=== PATIENT | male | born 1950 | race Caucasian/White ===

== ENCOUNTER 2020-07-14 06:32 | Emergency (ER) | payer MEDICARE, SELFPAY ==
[2020-07-14 06:35] VITALS: BP 153/86; PULSE 66; RESP 16; TEMP 36.9; O2SAT 99
[2020-07-14 07:08] VITALS: RESP 20
[2020-07-14] MEDS: KETOROLAC 30 MG/ML VIAL (*BKC) IV PUSH (07:25)
[2020-07-14] MEDS: ONDANSETRON INJ 4 MG/2 ML VIAL IV PUSH (07:26)
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
[2020-07-14 07:34] VITALS: BP 175/87; PULSE 67; RESP 20; O2SAT 96
[2020-07-14 08:50] VITALS: BP 151/83; PULSE 70; RESP 20; O2SAT 98
== END 2020-07-14 08:56 | disposition home or self-care (01) ==
PROVIDERS: Emergency Provider General Practice; PCP Internal Medicine
DX: M54.5 Low back pain (principal); I10 Essential (primary) hypertension
CPT/HCPCS: 96374; 96375; 99284; J1170; J1885; J2405

== ENCOUNTER 2020-07-14 16:34 | Emergency (ER) | payer MEDICARE, SELFPAY ==
--- NOTE | ~2020-07-14 | CT_ITS ---
EXAMINATION: CT lumbar spine wo con DATE: 07/14/2020 17:46 INDICATION: Left leg pain, low back pain TECHNIQUE: Computed tomography (CT) of the head was performed without intravenous contrast. The mA wa s adjusted according to patient size. Iterative reconstruction technique was employed. Exam dose: 40 5.86 mGy-cm total exam DLP. COMPARISON: None FINDINGS: There is moderately prominent degenerative disc disease and 3.4 mm retrolisthesis at L2-3, the posterior disc bulging. There is moderately severe degenerative disc disease, posterior spurring and 4 mm retrolisthesis at L 4-5. There is moderate degenerative disc disease and posterior spurring at L5-S1. No fracture or bone destruction is evident. No spondylolysis. Incidental finding of diverticulosis of the sigmoid colon IMPRESSION: Multilevel degenerative disc disease with retrolisthesis at L2-3 and L4-5 Reviewed, dictated and finalized at [facility]. Reviewed, dictated and finalized at [facility]. IMPRESSION: Multilevel degenerative disc disease with retrolisthesis at L2-3 a nd L4-5
[2020-07-14 16:41] VITALS: BP 176/83; PULSE 78; RESP 17; TEMP 36.9; O2SAT 97
--- NOTE | 2020-07-14 16:52 | ED.BACK ---
HPI - Back Pain/Injury General Chief Complaint: Back Pain/Injury Stated Complaint: L leg pain/ seen this am. Time Seen by Provider: 07/14/20 16:45 Source: patient Mode of arrival: ambulatory Limitations: no limitations History of Present Illness HPI Narrative: This patient is a 70 year old male with history chronic back issues who presents for evaluation of left lower back pain. Patient was evaluated this morning for this pain. After receiving pain medication, his pain resolved so he was discharged home. Patient states the pain medication resolved after a few hours so patient has returned. His pain is otherwise unchanged. He has no urinary issues. He has been able to ambulated. He ambulated into the ER. He has not fever, chills, nausea or vomiting. He also denies any abdominal pain. Associated symptoms: difficulty walking (due to pain) Related Data Allergies Allergy/AdvReac Type Severity Reaction Status Date / Time No Known Allergies Allergy Verified 07/14/20 17:00 Review of Systems Review of Systems: All systems reviewed & are unremarkable except as noted in HPI and below Constitutional: Constitutional: Denies chills and Denies fever(s) Respiratory: Respiratory: Denies dyspnea Gastrointestinal: Gastrointestinal: Denies abdominal pain, Denies diarrhea, Denies nausea and Denies vomiting Genitourinary: Genitourinary: Denies hematuria, Denies oliguria, Denies dysuria and Denies urinary frequency Musculoskeletal: Musculoskeletal: Reports back pain Neurologic: Denies dizziness, Denies focal weakness, Denies numbness and Denies weakness PMFSH Past Medical History Medical History (Updated 07/14/20 @ 19:13 by Laura Toribio MD) Hypertension Surgical History Surgical History (Updated 07/14/20 @ 07:28 by Laura Toribio MD) Previous back surgery Social History Social History Smoking status: Never smoker Alcohol intake: current Gender identity (if verbalized by the patient): Male Exam Const: General: no acute distress and alert Orientation/consciousness: patient oriented x3 HENMT: Head: normocephalic and atraumatic Face and sinus: face symmetric Eyes: Pupils: Equal, round and reactive pupils present EOM: EOMs intact bilaterally Chest: Chest palpation & inspection: normal inspection of the chest Resp: Effort & Inspection: normal respiratory effort and no retractions Auscultation: clear to auscultation bilaterally Cardio: Rate: regular rate Rhythm: regular rhythm Heart sounds: no murmurs GI: GI Palp: Yes Soft to palpation, No Tenderness to palpation present (GI), No Guarding due to palpation present (GI), No Rigid due to palpation and No No hepatosplenomegaly present Back/Spine/Pelvis: Thoracic/Lumbar Spine: straight leg raise negative bilaterally and paraspinal muscle tenderness on the left (lumbar, low) Skin: General skin exam: normal color Rashes: no rashes Neuro: General: patient oriented x3 and moves all extremities Extrem: General: normal to inspection and no pedal edema Other: strong palpable pedal pulses Course Reevaluation(s) Reevaluation #1: I discussed with patient labs were unremarkable. CT shows DJD no acute findings. Patient is able to ambulate and sit. Patient has no acute findings to suggest needed for emergent intervention. Date: 07/14/20 Time: 19:12 Vital Signs Vital signs: Vital Signs Temperature 98.4 F 07/14/20 16:41 Pulse Rate 78 07/14/20 16:41 Respiratory Rate 17 07/14/20 16:41 Blood Pressure 176/83 H 07/14/20 16:41 Pulse Oximetry 97 07/14/20 16:41 Temperature 98.4 F 07/14/20 16:41 Pulse Rate 78 07/14/20 16:41 Respiratory Rate 17 07/14/20 16:41 Blood Pressure 176/83 H 07/14/20 16:41 Pulse Oximetry 97 07/14/20 16:41 MDM - Back Pain/Injury Lab Data Attestation: I reviewed the patient's lab results. Result diagrams: 07/14/20 17:14 07/14/20 17:14 Labs: Lab Results 06/30
[2020-07-14] MEDS: ONDANSETRON INJ 4 MG/2 ML VIAL IV PUSH (17:06)
[2020-07-14 17:21] LABS: Basophils Absolute Auto 0.1 K/mm3 (0.0-0.1); Basophils Percent Auto 0.5 % (0.2-1.2); Eosinophils Absolute Auto 0.1 K/mm3 (0-0.3); Eosinophils Percent Auto 0.9 % (0-4.4); Hematocrit 46.3 % (42.0-52.0); Hemoglobin 15.6 g/dL (14.0-18.0); Immature Granulocyte Absolute 0.15 K/mm3 (0.00-0.031); Immature Granulocyte Percent A 1.6 % (0-0.5); Lymphocytes Absolute Auto 1.35 K/mm3 (0.9-3.2); Lymphocytes Percent Auto 14.6 % (18.3-44.2); Mean Corpuscular HGB Conc 33.7 g/dl (32-36); Mean Corpuscular Hemoglobin 30.7 pg (26-34); Mean Corpuscular Volume 91.1 fl (80-100); Mean Platelet Volume 10.3 fl (7.4-10.4); Neutrophils Absolute Auto 6.6 K/mm3 (1.3-6.7); Neutrophils Percent Auto 71.4 % (45.5-73.1); Platelet Count Result 223 k/mm3 (150-375); Red Blood Count 5.08 M/mm3 (4.6-6.20); Red Cell Distribution Width 13.2 % (11.5-14.5); White Blood Count 9.2 K/mm3 (4.5-10.0)
[2020-07-14 17:23] LABS: Add Urine Microscopic? NO; Appearance Urine Clear (Clear); Bilirubin Urine Negative (Negative); Blood Urine Negative (Negative); Color Urine Straw (Yellow); Glucose Urine UA Negative (Negative); Ketones Urine Negative (Negative); Leukocyte Esterase Ur Negative LEU/UL (Negative); Nitrate Urine Negative (Negative); Protein Urine Negative (Negative); Specific Grav Ur 1.014 (1.001-1.035); Urobilinogen Urine Negative mg/dL (<2.0)
[2020-07-14 17:32] LABS: Alanine Aminotransferase 28 U/L (4-50); Albumin Level 3.8 g/dL (3.5-5.1); Alkaline Phosphatase 50 U/L (38-126); Anion Gap 6 mmol/L (8-16); Aspartate Amino Transferase 30 U/L (17-59); Bilirubin,Total 0.4 mg/dL (0.2-1.3); Blood Urea Nitrogen 21 mg/dL (9-20); Calcium 8.1 mg/dL (8.4-10.2); Carbon Dioxide 29 mmol/L (22-30); Chloride 100 mmol/L (98-107); Estimated CRCL calculation 76 ml/min; Estimated Glomerular Filt Rate > 60; Glucose 120 mg/dL (75-110); Potassium 4.1 mmol/L (3.4-5.0); Sodium 135 mmol/L (137-145)
[2020-07-14 19:27] VITALS: BP 153/84; PULSE 63; RESP 18; O2SAT 97
== END 2020-07-14 19:29 | disposition home or self-care (01) ==
PROVIDERS: Emergency Provider General Practice; PCP Internal Medicine
DX: M54.5 Low back pain (principal); I10 Essential (primary) hypertension; M51.36 Other intervertebral disc degeneration, lumbar region
CPT/HCPCS: 36415; 72131; 80053; 81003; 85025; 96374; 96375; 99284; A9270; J1170; J1885; J2405

== ENCOUNTER → 2020-07-19 09:30 | Outpatient (CLI) | payer MEDICARE, SELFPAY ==
--- NOTE | ~2020-07-19 | MR_ITS ---
EXAMINATION: MR lumbar spine wo con DATE: 07/19/2020 10:07 INDICATION: Acute left-sided low back pain. TECHNIQUE: Magnetic resonance imaging (MRI) of the lumbar spine was performed without intravenous con trast. Sequences included sagittal T2-weighted FSE, sagittal T2-weighted FS FSE, sagittal T1-weighted FSE, and axial T2-weighted FSE. COMPARISON: CT lumbar spine 07/14/2020 FINDINGS: There is 6 degrees dextrocurvature of lumbar spine. There is 4 mm retrolisthesis of L2 on L 3, 3 mm retrolisthesis of L3 on L4, and 4 mm retrolisthesis of L4 on L5. There are Schmorl's nodes at most levels with mild chronic anterior wedging of T11-L2 vertebral bodies. There is moderately decre ased disc height at L2-L3, mildly decreased disc height at L3-L4, and severely decreased disc height at L4-L5 and L5-S1. The distal spinal cord signal intensity is normal. The conus medullaris is at L1. The following disc levels are specifically discussed: L1-L2: The disc is mildly bulging. There is mild bilateral facet joint osteoarthritis. There is no ne ural foraminal stenosis. There is mild central canal stenosis. L2-L3: The disc is bulging and has an annular fissure. There is mild bilateral facet joint osteoarthr itis. There is moderate bilateral neural foraminal stenosis. There is mild central canal stenosis. L3-L4: The disc is bulging and has an annular fissure. There is mild bilateral facet joint osteoarthr itis. There is mild right and moderate left neural foraminal stenosis. There is mild central canal st enosis. L4-L5: The disc is bulging with superimposed left central extrusion. There is mild right and moderate left facet joint osteoarthritis. There is moderate bilateral neural foraminal stenosis. There is mil d central canal stenosis. L5-S1: The disc is bulging and has an annular fissure. There is moderate and severe left facet joint osteoarthritis. There is moderate right and mild left neural foraminal stenosis. There is mild centra l canal stenosis. IMPRESSION: 1. Severe lumbar spondylosis. Reviewed, dictated and finalized at [facility].
== END ==
PROVIDERS: PCP Internal Medicine; Visit Provider Internal Medicine
DX: M47.896 Other spondylosis, lumbar region (principal); Z98.890 Other specified postprocedural states
CPT/HCPCS: 72148

== ENCOUNTER 2020-11-12 13:46 | Emergency (ER) | payer MEDICARE, SELFPAY ==
--- NOTE | ~2020-11-12 | XR_ITS ---
EXAMINATION: XR lumbar spine min 4V DATE: 11/12/2020 14:02 INDICATION: Nontraumatic low back pain TECHNIQUE: Anteroposterior, lateral, left and right oblique and coned-down lateral lumbosacral views of the lumbar spine were obtained]. COMPARISON: MRI dated 07/19/[address] dated 07/14/2020 FINDINGS: Minimal lumbar dextrocurvature. 4 mm retrolisthesis L2 on L3. Chronic mild anterior wedging at T12 an d L1. Mild disc height loss at T11-T12, T12-L1, L1-L2 and L3-L4. Moderate disc height loss at L2-L3, L4-L5 and L5-S1. No pars interarticularis defects. Moderate lower lumbar facet osteoarthritis. Bilate ral sacroiliac joints are normal. Mild bilateral hip osteoarthritis. IMPRESSION: 1. Moderate to severe lumbar spondylosis. Reviewed, dictated and finalized at [facility]. [facility] CL[facility]
[2020-11-12 13:50] VITALS: PULSE 67; RESP 18; TEMP 37.3; O2SAT 99
[2020-11-12 14:13] VITALS: BP 178/82; PULSE 68; RESP 18; O2SAT 98
[2020-11-12] MEDS: HYDROmorphone HCL INJ (*CRX) 1 MG/ML SYR 0.5 MG IV PUSH (14:19)
[2020-11-12] MEDS: ONDANSETRON INJ 4 MG/2 ML VIAL IV PUSH (14:19)
[2020-11-12] MEDS: KETOROLAC 15 MG/ML VIAL (*BKC) IV PUSH (14:29)
--- NOTE | 2020-11-12 14:52 | ED.BACK ---
HPI - Back Pain/Injury General Chief Complaint: Back Pain/Injury Stated Complaint: L SIDE PAIN Time Seen by Provider: 11/12/20 13:46 Source: patient and family Mode of arrival: ambulatory Limitations: no limitations History of Present Illness HPI Narrative: 70-year-old with a history of chronic low back pain here with increased pain for past few hours. Patient states that he accidentally turned in the wrong direction started developing severe pain which is radiating down to his left leg. Patient states that he takes ibuprofen for pain and he also follows with associated pain management people and gets epidural blocks. He denies any bladder or bowel incontinence. He states that he has some tingling sensation in his legs all the time but nothing worse. MD elicited complaint: back pain Pertinent past history: prior back pain Onset (ago): hour(s) (2) Timing: constant Severity: moderate Similar Symptoms Previously: Yes Quality: aching Location: lumbar spine Radiation: left leg below the knee Exacerbating factors: none Relieving factors: none Context: turning/twisting Associated symptoms: denies other symptoms Related Data Allergies Allergy/AdvReac Type Severity Reaction Status Date / Time No Known Allergies Allergy Verified 07/14/20 17:00 Review of Systems Review of Systems: All systems reviewed & are unremarkable except as noted in HPI and below Constitutional: Constitutional: Reports no additional constitutional complaints Eyes: Eyes: Reports no additional eye complaints ENT: Reports system reviewed and no additional complaints, except as documented Cardiovascular: Cardiovascular: Reports no additional cardiovascular complaints Respiratory: Respiratory: Reports no additional respiratory complaints Gastrointestinal: Gastrointestinal: Reports no additional gastrointestinal complaints Genitourinary: Genitourinary: Reports no additional male genitourinary complaints Neurologic: Reports system reviewed and no additional complaints, except as documented Psychiatric: Psychiatric: Reports no additional psychiatric complaints Endocrine: Endocrine: Reports no additional endocrine complaints [facility] Past Medical History Medical History Hypertension Surgical History Surgical History Previous back surgery Social History Social History Smoking status: Never smoker Alcohol intake: current Gender identity (if verbalized by the patient): Male Exam Narrative: Exam Narrative: GENERAL: Well-appearing, thin, and in no acute distress. HEAD: Normocephalic, atraumatic. EYES: PERRLA and EOMI. NECK: Supple. CHEST: Clear to auscultation. No respiratory distress. HEART: Regular rate and rhythm. No murmur heard. Normal peripheral pulses. ABDOMEN: Soft, nontender, nondistended, normal active bowel sounds. Back ; no vertebral point tenderness ,SLR neg was able to hold the leg. EXTREMITIES: Normal range of motion. No edema. SKIN: Warm, dry, no rash. NEURO: No focal deficits. Alert and oriented x3. PSYCH: Normal mood and affect. Course Course Emergency Course: Patient states he is feeling much better after the pain medication, I discussed x-ray findings with him and his daughter. He was able to stand at the bedside and was able to walk he states his pain has much improved and he does feel comfortable going home. Vital Signs Vital signs: Vital Signs Temperature 37.3 C 11/12/20 13:50 Pulse Rate 67 11/12/20 13:50 Respiratory Rate 18 11/12/20 13:50 Pulse Oximetry 99 11/12/20 13:50 Temperature 37.3 C 11/12/20 13:50 Pulse Rate 68 11/12/20 14:13 Respiratory Rate 18 11/12/20 14:13 Blood Pressure 178/82 H 11/12/20 14:13 Pulse Oximetry 98 11/12/20 14:13 MDM - Back Pain/Injury Differential Diagnosis Differential diagnosis: Likely l
[2020-11-12 15:28] VITALS: BP 145/78; PULSE 78; RESP 20; O2SAT 100
== END 2020-11-12 15:32 | disposition home or self-care (01) ==
PROVIDERS: Emergency Provider Family Medicine; PCP Internal Medicine
DX: S39.012A Strain of muscle, fascia and tendon of lower back, initial encounter (principal); I10 Essential (primary) hypertension; M47.816 Spondylosis without myelopathy or radiculopathy, lumbar region; X50.9XXA Other and unspecified overexertion or strenuous movements or postures, initial encounter
CPT/HCPCS: 72110; 96374; 96375; 99284; J1170; J1885; J2405